=== PATIENT | female | born 2000 | race Caucasian/White ===

== ENCOUNTER 2025-03-03 01:33 | Inpatient (IN) | payer OTHER ==
[~2025-03-03] VITALS: Ht 162.6 cm; Wt 92.0 kg
[2025-03-03 03:05] LABS: PLATELET COUNT (AUTO) 266 K/uL (150-450); RED BLOOD CELL COUNT(AUTO) 4.50 MIL/uL (4.00-5.20); RED CELL DISTRIBUTION WIDTH 14.1 % (11.5-14.5); WHITE BLOOD COUNT (AUTO) 16.9 K/uL (4.5-11.0)
[2025-03-03 03:15] LABS: CALCIUM, TOTAL 8.8 mg/dL (8.8-10.5); CREATININE 0.68 mg/dL (0.60-1.30); GLOMERULAR FILTR. RATE CALC > 60 mL/min (>60); GLUCOSE,RANDOM 82 mg/dL (70-110); SODIUM SERUM 140 mmol/L (136-145); UREA NITROGEN, BLOOD 9 mg/dL (7-18)
[2025-03-03 03:26] LABS: ASPARTATE AMINOTRANSFERASE 13 U/L (15-37); HCG,QUANTITATIVE < 1 mIU/mL (0-6); TOTAL PROTEIN, SERUM 7.5 g/dL (6.4-8.2)
[2025-03-03] MEDS: SODIUM CHLORIDE 0.9% 1,000 ML IV ONE (04:26)
[2025-03-03] MEDS: KETOROLAC TROMETHAMINE 30 MG/ML VIAL IVP ONE (04:26)
[2025-03-03] MEDS: PIPERACILLIN SODIUM/TAZOBACTAM 4.5 GM in DEXTROSE 5%-WATER 100 ML IV ONE (04:26)
[2025-03-03 11:45] VITALS: BP 112/60; PULSE 71; RESP 16; TEMP 97.3; O2SAT 98
[2025-03-03] MEDS ORDERED: PROPOFOL 1% 20 ML VIAL IVP ONE (12:00)
[2025-03-03] MEDS ORDERED: SUGAMMADEX SODIUM 200 MG/2 ML VIAL IVP ONE (12:00)
[2025-03-03] MEDS ORDERED: KETOROLAC TROMETHAMINE 60 MG/2 ML VIAL IM ONE (12:00)
[2025-03-03] MEDS ORDERED: ROCURONIUM BROMIDE 10 MG/ML 5 ML VIAL ONE (12:00)
[2025-03-03] MEDS ORDERED: ACETAMINOPHEN/ISO-OSM 1000 MG/100 ML BOTTLE IV ONE (12:00)
[2025-03-03] MEDS ORDERED: ONDANSETRON HCL 4 MG/2 ML VIAL ONE (12:00)
[2025-03-03] MEDS ORDERED: LIDOCAINE/PF 1% 5 ML VIAL ONE (12:00)
[2025-03-03] MEDS ORDERED: 0.9% SODIUM CHLORIDE 10 ML VIAL ONE (12:00)
[2025-03-03] MEDS ORDERED: BISACODYL 10 MG RECTAL RECTAL SUPPOSITORY PR PRN (15:15)
[2025-03-03] MEDS ORDERED: ALBUTEROL SULFATE 2.5 MG/0.5 ML NEB SOLUTION NEB PRN (15:15)
[2025-03-03] MEDS ORDERED: ZOLPIDEM TARTRATE 5 MG TABLET PO PRN (15:15)
[2025-03-03] MEDS ORDERED: ONDANSETRON HCL 4 MG/2 ML VIAL IVP PRN (15:15)
[2025-03-03] MEDS ORDERED: IPRATROPIUM BROMIDE 0.5 MG/2.5 ML NEB SOLUTION NEB PRN (15:15)
[2025-03-03] MEDS ORDERED: MAGNESIUM HYDROXIDE SUSPENSION 30 ML UDCUP PO PRN (15:15)
[2025-03-03] MEDS ORDERED: ACETAMINOPHEN 325 MG TABLET PO PRN (15:15)
[2025-03-03] MEDS ORDERED: SODIUM CHLORIDE 0.9% 500 ML IV ONE (15:43)
[2025-03-03] MEDS: HEPARIN SODIUM,PORCINE 5,000 UNITS/ML VIAL SQ SCH (16:00)
[2025-03-03] MEDS: PIPERACILLIN/TAZO 3.375 GM/D5W 50 ML IV SCH (16:07)
[2025-03-03] MEDS: RINGERS SOLUTION,LACTATED 1,000 ML IV SCH (16:08)
[2025-03-03] MEDS ORDERED: MEPERIDINE-PF 25 MG/ML VIAL IVP PRN (17:00)
[2025-03-03] MEDS ORDERED: FentaNYL CITRATE PF 100 MCG/2 ML VIAL IVP PRN (17:00)
[2025-03-03] MEDS: BUPIVACAINE 0.25%/EPI 1:200,000/PF 30 ML VIAL ONE (17:50)
[2025-03-03] MEDS: IOHEXOL 240 MG/ML 20 ML VIAL ONE (18:05)
[2025-03-03] MEDS ORDERED: RINGERS SOLUTION,LACTATED 1,000 ML IV ONE (18:34)
[2025-03-03 20:06] VITALS: BP 127/75; PULSE 78; RESP 18; TEMP 98.1; O2SAT 98
[2025-03-03] MEDS: MORPHINE SULFATE 4 MG/ML SYRINGE IVP PRN (20:12)
[2025-03-03] MEDS: DOCUSATE SODIUM 100 MG CAPSULE PO SCH (21:48)
[2025-03-04 04:18] VITALS: BP 117/70; PULSE 79; RESP 18; TEMP 98.6; O2SAT 98
[2025-03-04 07:08] VITALS: BP 119/66; PULSE 89; RESP 18; TEMP 98.2; O2SAT 100
[2025-03-04] MEDS: PANTOPRAZOLE SODIUM 40 MG/VIAL IVP SCH (08:56)
[2025-03-04] MEDS: OXYGEN THERAPY IH SCH (10:40)
[2025-03-04] MEDS: HYDROCODONE/ACETAMINOPHEN 5-325 MG TABLET PO PRN (13:49)
[2025-03-04 20:05] VITALS: BP 108/52; PULSE 54; RESP 18; TEMP 98.1; O2SAT 97
[2025-03-05 05:59] VITALS: BP 106/63; PULSE 69; RESP 18; TEMP 98.4; O2SAT 100
[2025-03-05 07:36] VITALS: BP 110/61; PULSE 86; RESP 18; TEMP 97.5; O2SAT 99
[2025-03-05] MEDS ORDERED: MORPHINE SULFATE/PF 0.5 MG/ML 10 ML AMP IVP ONE (07:45)
[2025-03-05] MEDS ORDERED: MIDAZOLAM HCL 2 MG/2 ML VIAL IVP ONE (07:45)
[2025-03-05] MEDS ORDERED: FentaNYL CITRATE PF 100 MCG/2 ML VIAL IVP ONE (07:45)
[2025-03-05 09:08] LABS: PLATELET COUNT (AUTO) 219 K/uL (150-450); RED BLOOD CELL COUNT(AUTO) 3.85 MIL/uL (4.00-5.20); RED CELL DISTRIBUTION WIDTH 14.4 % (11.5-14.5); WHITE BLOOD COUNT (AUTO) 13.0 K/uL (4.5-11.0)
[2025-03-05 09:24] LABS: ASPARTATE AMINOTRANSFERASE 64 U/L (15-37); CALCIUM, TOTAL 8.4 mg/dL (8.8-10.5); CREATININE 0.94 mg/dL (0.60-1.30); GLOMERULAR FILTR. RATE CALC > 60 mL/min (>60); GLUCOSE,RANDOM 128 mg/dL (70-110); SODIUM SERUM 141 mmol/L (136-145); TOTAL PROTEIN, SERUM 6.5 g/dL (6.4-8.2); UREA NITROGEN, BLOOD 9 mg/dL (7-18)
[2025-03-05] MEDS ORDERED: ACET-784 PO (12:07)
[2025-03-05] MEDS ORDERED: MAGN-169 PO (12:08)
[2025-03-05 15:25] VITALS: BP 101/54; PULSE 66; RESP 16; TEMP 98.2; O2SAT 100
== END 2025-03-05 21:12 | DRG 419 ==
LOC: EMS 01:40 → EDH 07:05 → 6N 11:30
PROVIDERS: ADMIT Internal Medicine; ATTEND Internal Medicine
PROC: BF131ZZ Fluoroscopy of Gallbladder and Bile Ducts using Low Osmolar Contrast (ICD-10-PCS; 2025-03-03)
PROC: 0FT44ZZ Resection of Gallbladder, Percutaneous Endoscopic Approach (ICD-10-PCS; principal; 2025-03-03 17:00)
DX: K80.00 Calculus of gallbladder with acute cholecystitis without obstruction (principal); E66.9 Obesity, unspecified; J45.909 Unspecified asthma, uncomplicated; Z68.34 Body mass index [BMI] 34.0-34.9, adult; K82.8 Other specified diseases of gallbladder
CPT/HCPCS: 76705; 80048; 80053; 80076; 83690; 84702; 85025; 87081; 99285; J0131; J0690; J1644; J1885; J2001; J2250; J2270; J2274; J2405; J2470; J2543; J2704; J3010; J3490; J7030; J7040; J7060; J7120; Q9966